=== PATIENT | male | born 1965 | race Caucasian/White ===

== ENCOUNTER 2016-02-15 12:33 | Observation (INO) | payer OTHER ==
[~2016-02-15] VITALS: Ht 175.3 cm; Wt 58.5 kg
[~2016-02-15 12:33] MED LIST: AMLO5TAB2 PO; ASPI-973 PO; ATOR80TA PO; BUPR150T8 PO; CLOP75TA3 PO; ERGO500050 PO; METO25TA6 PO; NITR12SP5 TL; OMEG1000 PO; PARO20TA57 PO
[2016-02-15 12:36] VITALS: BP 163/85; PULSE 94; RESP 20; O2SAT 98
[2016-02-15 13:05] VITALS: BP 147/78; PULSE 84; RESP 21; O2SAT 97
--- NOTE | 2016-02-15 13:05 | ED.REPORT ---
HPI-Chest Pain 40 and Over Date of Service Feb 15, 2016 ED Provider: Mina Perez Patient is a 50 year old male with a cardiac history who presents to the ED complaining of dull chest pain onset 1030 this morning. He reports that he came home from work and was laying in bed when he started getting dull chest pain that became sharp, radiated to his arm (unspecified), and then resolved. His pain repeats these cycles and his pain last for about 5 min each cycle. Associated symptoms include bilateral leg pain, headache, cough, fever, sore throat, and vomiting. He denies SOB, lightheadedness, or any other symptoms. He took one baby aspirin and one Nitro at home for his pain with mild relief. Nursing Notes Stated Complaint: CHEST PAIN Chief Complaint: Chest Pain Nursing Notes Reviewed: Yes Allergies: Coded Allergies: Penicillins (Verified Allergy, Severe, Anaphylaxis, 05/12/15) azithromycin (Verified Allergy, Severe, Hives, 05/12/15) Scheduled Aspirin (Aspirin) 81 Mg Tablet 81 MG PO DAILY General Time Seen by MD: 13:04 Chief Complaint Chest pain Hx Obtained From: Patient Arrived By: Walk-in Sudden in Onset?: Yes Risk Factors )( CAD Risk Stratification Diabetes mellitus Hyperlipidemia Hypertension Known CAD Smoking Risk factors reviewed )( TAD Risk Stratification Hypertension Risk factors reviewed )( PE Risk Stratification No Previous DVT Risk factors reviewed Past Medical History Patient History: Diabetes mellitus MOTHER FH: CAD (coronary artery disease) MOTHER FH: HTN (hypertension) MOTHER FHx: melanoma FATHER, Onset:60 years & older Past Medical History Notes: Patient is status post a normal stress echo 03/21/2014 Past Medical History Coronary artery disease status post stenting of LAD with a Xience drug-eluting stent 05/11/2012 Hypertension Hyperlipidemia Mild depression Treadmill stress test June 2014- Non-specific T-wave abnormalities Reports: Coronary artery disease, Diabetes mellitus, Hyperlipidemia, Hypertension Past Surgical History Torn meniscus 2006 Cardiac cath with stent placement LAD 05/11/2012 Reports: Appendectomy, Tonsillectomy Family History Grandfather - heart disease at age 60 Smoking History Current Every Day Smoker Social History Alcohol Use: Denies alcohol use Drug Use: Denies drug use Other Social History: Occupation lives with family, 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 Ears / Nose / Throat: Reports: Sore throat Physical Exam Initial Vital Signs Vital Signs (First) Date Time Temp Pulse Resp B/P Pulse Ox O2 Delivery O2 Flow Rate FiO2 02/15/16 12:36 37.8 94 20 163/85 98 Room Air Initial VS: Reviewed Head / Eyes: Atraumatic, Normocephalic Neck: Full range of motion Skin: Warm, Dry Neurologic: Alert, Oriented, Nonfocal Psychiatric: Mood/affect normal, Behavior normal, Normal thought content General/Constitutional: Awake, Alert, Well appearing, Well developed Respiratory / Chest: Atraumatic, Breath sounds NL, Breath sounds = bilat, No respiratory distress Cardiovascular: Heart rate NL, Regular rhythm, Heart sounds NL Abdomen: Atraumatic, Soft, Non-tender Interpretation & Diagnostics Lab Results Interpretation Result Diagram: 02/15/16 1315 02/15/16 1315 Test 02/15/16 13:15 White Blood Count 9.0th/mm3 (3.8-10.1) Red Blood Count 4.54mil/mm3 (4.40-5.80) Hemoglobin 14.1g/dL (13.8-17.2) Hematocrit 41.3% (41.0-50.0) Mean Corpuscular Volume 91.0fL (81-100) Mean Corpuscular Hemoglobin 31.1pg (27.0-35.0) Mean Corpuscular Hemoglobin Concent 34.1% (32.0-37.0) Red Cell Distribution Width 13.4% (12.3-15.4) Platelet Count 180bil/L (150-400) Neutrophils (%) (Auto) 84.9% (40-74) Lymphocytes (%) (Auto) 8.0% (14-46) Monocytes (%) (Auto) 4.5% (4-12) Eosinophils (%) (Auto) 2.0% (0-5) Basophils (%) (Auto) 0.4% (0-3) Sodium Level 140mEq/L (134-144) Potassium Level 4.2mEq/L (3.5-5.2) Chloride Level 99mEq/L (97-108) Carbon Dioxide Level 26mmol/L (18-29) Blood Urea Nitrogen 19mg/dL (6-24) Creatinine 0.89mg/dL (0.76-1.27) Estimat Glomerular Filtration Rate 95mL/min (>59) Glucose Level 113mg/dL (60-99) Calcium Level 9.3mg/dL (8.5-10.1) Magnesium Level 1.8mg/dL (1.6-2.6) Total Bilirubin 0.2mg/dL (0.0-1.2) Aspartate Amino Transf (AST/SGOT) 15U/L (0-50) Alanine Aminotransferase (ALT/SGPT) 13U/L (0-44) Alkaline Phosphatase 155U/L (25-150) Troponin T < 0.010ug/L (0.0-0.011) Total Protein 6.5g/dL (6.4-8.4) Albumin 4.1g/dL (3.4-5.0) Hold Major Top Tube Received (Received) ECG Interpretation ECG Interpretation: Sinus rate 85 Time: 13:23 Interpreted by: ED physician X-Ray Chest Interpretation Chest Xray Interpretation: IMPRESSION: No acute cardiopulmonary disease. Dictated by: Julio Cesar Don M.D. on 02/15/2016 at 13:13 Approved by: Julio Cesar Don M.D. on 02/15/2016 at 13:13 View: Portable, 1 view Interpretation / Wet Read by: Interpret - Radiologist Re-Eval/Medical Decision Time of Eval: 14:18 Re-Evaluation/Progress Note: Discussed desire for admission. Patient understands and agrees with plan. All questions addressed at this time. Consultation : Referral / Consult Name: Yash Palomino MD Consulted With: Hospitalist Call Returned at: 14:51 Area Development Manager: Accepts admit Counseled Regarding: Diagnosis, Lab results, Need for admission Discharge & Departure Primary Impression: Chest pain Chest pain type: precordial chest pain Qualified Code: R07.2 - Precordial pain Disposition: ADMITTED TO HOSPITAL Referrals: Rocio Villarreal MD (PCP) Scribe Attestation Portions of this note were transcribed by Karin Michaud. IDr. Perez personally performed the history, physical exam and medical decision-making; I reviewed and confirmed the accuracy of the information in the transcribed note. Signed by: Karin Michaud 02/15/2016, 1431 copies to: [facility] Mina Perez MD Feb 15, 2016 13:05 KARIN MICHAUD Feb 15, 2016 13:24
--- NOTE | 2016-02-15 13:15 | DRSVH ---
PROCEDURE: X-RAY CHEST ONE VIEW ([id number]) INDICATIONS: 50 year-old male with chest pain for one hour. TECHNIQUE: One view of the chest was acquired. COMPARISON: [facility], CR, XR CHEST 2VW, 07/08/2015, 14:45. [facility], CR, XR CHEST 1VW (PORTABLE), 05/12/2015, 0:16. [facility], CR, CHEST 1VW (PORTABLE), 07/01/19 15, 11:24. FINDINGS: Surgical changes and devices: None. Lungs and pleura: No pleural effusions or pneumothorax. Lungs are clear. Mediastinum: Mediastinal contours appear normal. Heart size is normal. Bones and chest wall: No suspicious bony lesions. Overlying soft tissues appear unremarkable. IMPRESSION: No acute cardiopulmonary disease. Dictated by: Julio Cesar Don M.D. on 02/15/2016 at 13:13 Approved by: Julio Cesar Don M.D. on 02/15/2016 at 13:13
[2016-02-15 13:30] LABS: BASOPHILS % (AUTO) 0.4 % (0-3); MONOCYTES % (AUTO) 4.5 % (4-12); Mean Corpuscular Hemoglobin 31.1 pg (27.0-35.0); NEUTROPHILS % (AUTO) 84.9 % (40-74); Platelet Count 180 bil/L (150-400)
[2016-02-15] MEDS ORDERED: levoFLOXacin Inj 750 MG in IV Premix 1 EACH IV ONE (14:05)
[2016-02-15 14:06] LABS: Magnesium 1.8 mg/dL (1.6-2.6)
[2016-02-15 14:09] LABS: TROPONIN T < 0.010 ug/L (0.0-0.011)
[2016-02-15] MEDS ORDERED: Ondansetron 2 mg/mL 2 mL Inj IVPUSH PRN (14:55)
[2016-02-15] MEDS ORDERED: Alum-Mag Hydrox-Simeth 30 mL Suspension PO PRN (14:55)
[2016-02-15 15:21] VITALS: BP 138/75; PULSE 93; RESP 20; O2SAT 100
[2016-02-15] MEDS ORDERED: Polyethylene Glycol (PEG) 17 Gm Powder PO PRN (15:30)
[2016-02-15 16:31] VITALS: BP 134/68; PULSE 87; O2SAT 96
[2016-02-15 17:04] VITALS: PULSE 84
--- NOTE | 2016-02-15 17:50 | NUR ---
ADMIT TO [facility] Patient arrived to Rm 100[facility] on [facility] and self transferred over to hospital bed independently. Alert and oriented. Saline lock IV to left forearm. On RA. VSS. Telemetry placed on patient. C/o dull chest pain 3/10, non radiating. Telemetry placed on patient. Rapid influenza screen sent down to lab. Completed admission, pending med rec. Oriented to room. Will continue hourly rounding.
--- NOTE | 2016-02-15 18:14 | NUR ---
MED REC Unable to complete med rec. Patient does not remember medications by heart, pharmacy is closed until 10am tomorrow morning. No one is at home right now to read medication labels over phone. Will pass onto material handler 2nd shift to possibly get a hold of patient's when she gets off work. Addendum: 02/15/16 at 1834 by RITCHIE KEMP RN MD mora. RINKU
--- NOTE | 2016-02-15 18:24 | PCM.HPMED ---
Subjective Date of Service Feb 15, 2016 Primary Provider: Admitting Physician: Yash Palomino MD Primary Care Physician: Rocio Villarreal MD Attending Physician: Yash Palomino MD Admit Status: From the Emergency Department, 23-Hour Observation, Admit to Red Team Chief Complaint: Chest pain/4h Cough and malaise/2 days History of Present Illness: 50-year-old gentleman with past medical history of CAD status post stent on LAD on 05/10/14, hypertension, hyper triglyceride, depression, low vitamin D, current smoker came to emergency room due to chest pain of 4 hours. Patient was lying in bed and at rest when he started to have left chest, dull aching pain. Pain is intermittent, lasts 5 minutes, radiates to left shoulder. No aggravating or relieving factor noted. No diaphoresis. He works at [employer] and lifts heavy stuff, never had any chest pain with exertion. Patient admits he is noncompliant with medications. He stopped taking Plavix recently by himself. He takes aspirin. He has been having dry cough and chest congestion for the past 2 days. Has malaise. Temp 37.8 in ED He has multiple family members who are also sick with similar cold symptoms. His , [id number], son-in-law sick with similar cold symptoms. Current smoker,3/4 pack a day. Last stress test 07/01/14 when he was admitted for chest pain and was unremarkable. ED course: Temp 37.8, BP 163/85, other vitals unremarkable EKG NSR no st/t wave changes, troponin negative 1. Chest x-ray normal Hospitalist service requested for admission for chest pain Review of Systems: A comprehensive review of systems performed, pertinent positives and negatives included in history of present illness Allergies Coded Allergies: Penicillins (Verified Allergy, Severe, Anaphylaxis, 05/12/15) azithromycin (Verified Allergy, Severe, Hives, 05/12/15) Home Medications patient not sure of list,[facility] closed ASa metoprolol statin PMH CAD status post stent on LAD on 05/10/14, hypertension, hyper triglyceride, depression, low vitamin D, current smoker Surgical History Cardiac stent 2014 Right knee surgery Tonsillectomy as a kid Family History His mom due to heart disease. She had CAD starting in her 50s His dad of melanoma at 65 Social History Hx Alcohol Use: Yes Hx Substance Use: Yes Hx Tobacco Use: Yes Smoking Status: Current Every Day Smoker Living Arrangement: with Family Exam Vital Signs Vital Sign - Last Date Time Temp Pulse Resp B/P Pulse Ox O2 Delivery O2 Flow Rate FiO2 02/15/16 17:04 84 02/15/16 16:31 37.2 134/68 96 Room Air 02/15/16 15:21 20 Exam Gen. patient is lying comfortably in hospital bed HEENT: Head is normocephalic atraumatic, Pupils equal and reactive, extraocular movements intact, Lungs clear to auscultation bilaterally Heart regular rate and rhythm without murmurs gallops or rubs Abdomen soft nontender without hepatosplenomegaly Extremities pulses are present dorsalis pedis posterior tibialis and radial. tSkin is warm and dry there are no rashes, Psych alert and oriented to person place and time Neuro cranial nerves II through XII are grossly intact Lymph: There is no lymphadenopathy appreciated in the cervical supra infraclavicular regions : no fisher Lab and Diagnostics Result Diagram: 02/15/16 1315 02/15/16 1315 X-Rays, CTs and MRIs PROCEDURE: X-RAY CHEST ONE VIEW ([id number]) INDICATIONS: 50 year-old male with chest pain for one hour. TECHNIQUE: One view of the chest was acquired. COMPARISON: [facility], CR, XR CHEST 2VW, 07/08/2015, 14:45. [facility], CR, XR CHEST 1VW (PORTABLE), 05/12/2015, 0:16. [facility], CR, CHEST 1VW (PORTABLE), 06/30/2014, 11:24. FINDINGS: Surgical changes and devices: None. Lungs and pleura: No pleural effusions or pneumothorax. Lungs are clear. Mediastinum: Mediastinal contours appear normal. Heart size is normal. Bones and chest wall: No suspicious bony lesions. Overlying soft tissues appear unremarkable. IMPRESSION: No acute cardiopulmonary disease. Dictated by: Julio Cesar Don M.D. on 02/15/2016 at 13:13 12-lead ECG Normal sinus rhythm Assessment & Plan 50-year-old gentleman with past medical history of CAD status post stent on LAD on 05/10/14, hypertension, hyper triglyceride, depression, low vitamin D, current smoker came to emergency room due to chest pain of 4 hours. #Chest pain, POA, acute - Likely due to chest congestion due to URI -Continue Aspirin, hold metoprolol pending stress test - nitro prn, EKG when necessary -Stress test tomorrow -trend troponin #URI symptoms -Likely viral -Supportive care -Influenza screen # CAD status post stent on LAD on 05/10/14, hypertension -Continue aspirin, statin -hold BB for stress test - BP stable now #Low vitamin D -Continue home meds #Current smoker ,chronic -Counseled patient. Patient seems very motivated to quit. 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 Discussed CODE STATUS, full code Patient admitted under observation status with expected length of stay < 2 midnights for severity of present symptoms, complexities of treatment plan and risk for adverse events Pain Evaluation: Adequate Pain Control Resuscitation Status: CPR: Attempt Resuscitation copies to: Rocio Villarreal MD, Melaku MD Feb 15, 2016 18:24
[2016-02-15 20:10] VITALS: BP 125/71; PULSE 88; RESP 16; O2SAT 94
--- NOTE | 2016-02-15 23:10 | NUR ---
Care transferred to [facility] at 2300.
[2016-02-16] VITALS (8 sets, daily range): BP systolic 96–138; BP diastolic 61–71; PULSE 75–96; RESP 16; O2SAT 93–96
--- NOTE | 2016-02-16 03:02 | NUR ---
Headache/temp Pt reporting headache 5/10 and also had a temp of 38.3. Pt given 975 mg of PO Tylenol. On reassessment, headache gone and temp down to 37.3. Also Rapid flu swab sent to lab. Pt has been NPO since midnight.
[2016-02-16 03:20] LABS: BASOPHILS % (AUTO) 0.5 % (0-3); EOSINOPHILS % (AUTO) 1.4 % (0-5); MONOCYTES % (AUTO) 7.4 % (4-12); Mean Corpuscular Hemoglobin 30.9 pg (27.0-35.0); Mean Corpuscular Volume 91.3 fL (81-100); NEUTROPHILS % (AUTO) 84.1 % (40-74); Platelet Count 153 bil/L (150-400)
[2016-02-16 04:16] LABS: Magnesium 1.8 mg/dL (1.6-2.6); TROPONIN T 0.01 ug/L (0.0-0.011)
--- NOTE | 2016-02-16 14:06 | NUR ---
Cardiac- Patient NPO this am for MIBI. Completed first portion. Denies chest pain or shortness of breath. Tele-sinus rhythm.
--- NOTE | 2016-02-16 15:46 | NUR ---
Social Work Note: Screen Note Data& Assessment: EMR reviewed. SW met with pt and pt family at bedside to discuss discharge planning, SW role explained. Shantanu Gallardo is a 50 year old male under observation for chest pain. Pt has [employer] out of state insurance coverage and sees Rocio Villarreal MD for primary care. Pt lives in [place] with his family and is independent at baseline with ADL's. Pt daughter to transport him home when medically ready. Pt expressed concerns regarding medical bills, SW provided him with financial assistance application. Pt denies any other needs at this time. SW to continue to follow if any needs arise. Plan: Anticipated discharge home via POV when medically ready. Pt denies any other needs at this time. SW to continue to follow if any needs arise. KASIA Aguirre
--- NOTE | 2016-02-16 17:08 | PCM.DIMED ---
Discharge Instructions Date of Service Feb 16, 2016 Dates of Hospitalization Feb 15, 2016 at 15:01 Discharge Diagnosis Discharge Diagnosis #Chest pain, POA, acute,ACS ruled out - Likely due to chest congestion due to URI #URI symptoms,acute -Likely viral # CAD status post stent on LAD on 05/10/14, hypertension #Low vitamin D #Current smoker ,chronic Test Results stress test IMPRESSION: Positive for ischemia in the lateral wall 1) Abnormal perfusion study. Moderate amount of ischemia noted in the lateral wall. Summed stress score is 8 and summed difference score is 6. 2) Normal left ventricular size, wall motion, and function (EF 60%). 3) Non-diagnostic ECG changes with exercise or lexiscan. 4) No angina or angina equivalent symptoms with exercise. 5) Poor exercise tolerance (7 METs achieved, PATRICE +40%). Study converted to lexiscan as target heart rate not reached and patient felt lightheadedness with exercise. 6) Appropriate heart rate and blood pressure response to exercise. 7) Compared to the stress test done 07/2013, lateral wall ischemia is new on today's study. Diet Low fat, Low Sodium, Heart Healthy Activity Limited until seen by PCP Call your provider Fever or Chills, Shortness of breath, Bleeding, Chest pain, Vomitting, Excessive diarrhea, Weakness (unilateral) Patient Instructions You were hospitalized due to chest pain. Stress test shows lateral ischemia ( suspected heart artery artery). Please continue your home medications including Aspirin 325 mg daily, metoprolol 25 mg by mouth daily and atorvastatin 40 mg by mouth daily. Counseled on smoking cessation. Please follow-up with taxonomy teacher in 1-2 weeks. Please follow-up with his PCP in 1 week. Follow-up plan Please follow-up with PCP in 1 week Follow-up Provider: Rocio Villarreal MD Follow-up with PCP in: 1 week Provider: Bradley Valenzuela MD Follow-up in: 1 week Yash Palomino MD Feb 16, 2016 17:08
--- NOTE | 2016-02-16 17:10 | PCM.DC.MED ---
Discharge Summary Date of Service Feb 16, 2016 Dates of Hospitalization Date of Hospital Admission Feb 15, 2016 at 15:01 Date of Discharge: Feb 17, 2016 Providers: Admitting Physician: Yash Lucero MD Primary Care Physician: Rocio Villarreal MD Attending Physician: Yash Lucero MD Diagnosis at Time of Discharge Diagnosis at Time of Discharge #Chest pain, POA, acute -due to CAD ,new lateral wall ischemia on stress test #URI symptoms,acute -Likely viral # CAD status post stent on LAD on 05/10/14, hypertension #Low vitamin D #Current smoker ,chronic Consultations no alliances consultant was involved on this case Procedures XRay, CTs & MRIs PROCEDURE: X-RAY CHEST ONE VIEW ([id number]) INDICATIONS: 50 year-old male with chest pain for one hour. TECHNIQUE: One view of the chest was acquired. COMPARISON: [facility], CR, XR CHEST 2VW, 07/08/2015, 14:45. [facility], CR, XR CHEST 1VW (PORTABLE), 05/12/2015, 0:16. [facility], CR, CHEST 1VW (PORTABLE), 06/30/2014, 11:24. FINDINGS: Surgical changes and devices: None. Lungs and pleura: No pleural effusions or pneumothorax. Lungs are clear. Mediastinum: Mediastinal contours appear normal. Heart size is normal. Bones and chest wall: No suspicious bony lesions. Overlying soft tissues appear unremarkable. IMPRESSION: No acute cardiopulmonary disease. Dictated by: Julio Cesar Don M.D. on 02/15/2016 at 13:13 ECG 12 Lead Normal sinus rhythm Brief History as per HPI performed by mn on 02/15/16 50-year-old gentleman with past medical history of CAD status post stent on LAD on 05/10/14, hypertension, hyper triglyceride, depression, low vitamin D, current smoker came to emergency room due to chest pain of 4 hours. Patient was lying in bed and at rest when he started to have left chest, dull aching pain. Pain is intermittent, lasts 5 minutes, radiates to left shoulder. No aggravating or relieving factor noted. No diaphoresis. He works at [employer] and lifts heavy stuff, never had any chest pain with exertion. Patient admits he is noncompliant with medications. He stopped taking Plavix recently by himself. He takes aspirin. He has been having dry cough and chest congestion for the past 2 days. Has malaise. Temp 37.8 in ED He has multiple family members who are also sick with similar cold symptoms. His , [id number], son-in-law sick with similar cold symptoms. Current smoker,3/4 pack a day. Last stress test 07/01/14 when he was admitted for chest pain and was unremarkable. ED course: Temp 37.8, BP 163/85, other vitals unremarkable EKG NSR no st/t wave changes, troponin negative 1. Chest x-ray normal Hospitalist service requested for admission for chest pain Hospital Course 50-year-old gentleman with past medical history of CAD status post stent on LAD on 05/10/14, hypertension, hyper triglyceride, depression, low vitamin D, current smoker came to emergency room due to chest pain of 4 hours. #Chest pain, POA, acute - Likely due to chest congestion due to URI -Continue Aspirin, hold metoprolol pending stress test - nitro prn, EKG when necessary -Stress test tomorrow -troponin 3 -Discussed with Dr Ramos , he needs to follow with his substance abuse clinician in 1-2 weeks #URI symptoms -High grade fever with URI symptoms. Likely viral, pro calcitonin negative 2 -Supportive care -Influenza screen negative -Blood culture sent but pro calcitonin negative 2. Discharge patient. I Will follow up with culture results tomorrow # CAD status post stent on LAD on 05/10/14, hypertension -Continue aspirin, statin and metoprolol -Counseled on smoking cessation. - BP stable now #Low vitamin D -Continue home meds #Current smoker ,chronic -Counseled patient. Patient seems very motivated to quit. 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 Discussed CODE STATUS, full code Disposition discharge home Condition on discharge stable Exam Vital Signs (Last) Date Time Temp Pulse Resp B/P Pulse Ox O2 Delivery O2 Flow Rate FiO2 02/16/16 12:00 37.8 88 16 138/68 96 Room Air Exam Gen. patient is lying comfortably in hospital bed HEENT: Head is normocephalic atraumatic, Pupils equal and reactive, extraocular movements intact, Lungs clear to auscultation bilaterally Heart regular rate and rhythm without murmurs gallops or rubs Abdomen soft nontender without hepatosplenomegaly Extremities pulses are present dorsalis pedis posterior tibialis and radial. tSkin is warm and dry there are no rashes, Psych alert and oriented to person place and time Neuro cranial nerves II through XII are grossly intact Lymph: There is no lymphadenopathy appreciated in the cervical supra infraclavicular regions : no fisher Test 02/15/16 13:15 02/15/16 18:05 02/16/16 02:55 02/16/16 11:50 Hold Major Top Tube Received (Received) Procalcitonin < 0.05ng/mL (See Comment) White Blood Count 7.3th/mm3 (3.8-10.1) Red Blood Count 4.46mil/mm3 (4.40-5.80) Hemoglobin 13.8g/dL (13.8-17.2) Hematocrit 40.7% (41.0-50.0) Mean Corpuscular Volume 91.3fL (81-100) Mean Corpuscular Hemoglobin 30.9pg (27.0-35.0) Mean Corpuscular Hemoglobin Concent 33.9% (32.0-37.0) Red Cell Distribution Width 13.8% (12.3-15.4) Platelet Count 153bil/L (150-400) Neutrophils (%) (Auto) 84.1% (40-74) Lymphocytes (%) (Auto) 6.3% (14-46) Monocytes (%) (Auto) 7.4% (4-12) Eosinophils (%) (Auto) 1.4% (0-5) Basophils (%) (Auto) 0.5% (0-3) Sodium Level 137mEq/L (134-144) Potassium Level 3.9mEq/L (3.5-5.2) Chloride Level 99mEq/L (97-108) Carbon Dioxide Level 23mmol/L (18-29) Blood Urea Nitrogen 18mg/dL (6-24) Creatinine 0.76mg/dL (0.76-1.27) Estimat Glomerular Filtration Rate 114mL/min (>59) Glucose Level 106mg/dL (60-99) Calcium Level 9.1mg/dL (8.5-10.1) Magnesium Level 1.8mg/dL (1.6-2.6) Total Bilirubin 0.3mg/dL (0.0-1.2) Aspartate Amino Transf (AST/SGOT) 14U/L (0-50) Alanine Aminotransferase (ALT/SGPT) 13U/L (0-44) Alkaline Phosphatase 135U/L (25-150) Troponin T 0.010ug/L (0.0-0.011) Total Protein 6.6g/dL (6.4-8.4) Albumin 3.8g/dL (3.4-5.0) Hold Urine Received (Received) Discharge Medications Discharge Medications Aspirin (Aspirin) 325 Mg Tablet 325 MG PO DAILY Prescribed by: YASH LUCERO MD Atorvastatin Calcium (Atorvastatin Calcium) 40 Mg Tablet 40 MG PO HS Prescribed by: YASH LUCERO MD Metoprolol Succinate ER (Metoprolol Succinate ER) 50 Mg Tab.er.24h 50 MG PO DAILY Prescribed by: YASH LUCERO MD As needed ([Guaifenesin/D-Methorphan Hb]) 10 ML SYRUP 5-10 ML PO Q4H PRN PRN For Cough Prescribed by: YASH LUCERO MD Followup Plan Disposition: home Follow-up plan Please follow-up with PCP in 1 week Discharge Diet: Low fat, Low Sodium, Heart Healthy Discharge Activity: Limited until seen by PCP Patient Instructions You were hospitalized due to chest pain. heart attack ruled out. looks like pain is due to your viral URI. Please continue your home medications as usual including Aspirin and metoprolol. Follow-up Provider: Rocio Villarreal MD Follow-up with PCP in: 1 week Provider: Bradley Valenzuela MD Follow-up in: 1 week copies to: Bradley Valenzuela MD; Rocio Villarreal MD, Melaku MD Feb 16, 2016 17:10
--- NOTE | 2016-02-16 17:15 | PCM.PNMED ---
Subjective Date of Service Feb 16, 2016 Subjective Had stress test, we get resting phase tomorrow Exam Vital Signs Vital Sign - Last Date Time Temp Pulse Resp B/P Pulse Ox O2 Delivery O2 Flow Rate FiO2 02/16/16 12:00 37.8 88 16 138/68 96 Room Air Intake and Output 02/15/16 02/15/16 02/16/16 Cumulative From/Thru 15:00 23:00 07:00 02/15/16 12:36 - 02/16/16 06:19 Intake Total 300 ml 300 ml 600 ml Output Total 0 ml 500 ml 500 ml Balance 300 ml -200 ml 100 ml Intake Oral 300 ml 300 ml 600 ml Output Urine Total 0 ml 500 ml 500 ml # Bowel Movements 0 0 Exam Gen. patient is lying comfortably in hospital bed HEENT: Head is normocephalic atraumatic, Pupils equal and reactive, extraocular movements intact, Lungs clear to auscultation bilaterally Heart regular rate and rhythm without murmurs gallops or rubs Abdomen soft nontender without hepatosplenomegaly Extremities pulses are present dorsalis pedis posterior tibialis and radial. tSkin is warm and dry there are no rashes, Psych alert and oriented to person place and time Neuro cranial nerves II through XII are grossly intact Lymph: There is no lymphadenopathy appreciated in the cervical supra infraclavicular regions : no fisher IVs and Medications Medications Reviewed: Medications were reviewed in detail Lab and Diagnostics Result Diagram: 02/16/165 02/16/16 025 X-Rays, CTs and MRIs PROCEDURE: X-RAY CHEST ONE VIEW ([id number]) INDICATIONS: 50 year-old male with chest pain for one hour. TECHNIQUE: One view of the chest was acquired. COMPARISON: [facility], CR, XR CHEST 2VW, 07/08/2015, 14:45. [facility], CR, XR CHEST 1VW (PORTABLE), 05/12/2015, 0:16. [facility], CR, CHEST 1VW (PORTABLE), 06/30/2014, 11:24. FINDINGS: Surgical changes and devices: None. Lungs and pleura: No pleural effusions or pneumothorax. Lungs are clear. Mediastinum: Mediastinal contours appear normal. Heart size is normal. Bones and chest wall: No suspicious bony lesions. Overlying soft tissues appear unremarkable. IMPRESSION: No acute cardiopulmonary disease. Dictated by: Julio Cesar Don M.D. on 02/15/2016 at 13:13 12-lead ECG Normal sinus rhythm Assessment & Plan 50-year-old gentleman with past medical history of CAD status post stent on LAD on 05/10/14, hypertension, hyper triglyceride, depression, low vitamin D, current smoker came to emergency room due to chest pain of 4 hours. #Chest pain, POA, acute - Likely due to chest congestion due to URI -Continue Aspirin, hold metoprolol pending stress test - nitro prn, EKG when necessary -Stress test show some defect. will do resting phase tomorrow - troponin negative x3 #URI symptoms -Likely viral -Supportive care -Influenza screen # CAD status post stent on LAD on 05/10/14, hypertension -Continue aspirin, statin -hold BB for stress test - BP stable now #Low vitamin D -Continue home meds #Current smoker ,chronic -Counseled patient. Patient seems very motivated to quit. 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 Discussed CODE STATUS, full code disposition:dc tmrw after stress test is completed Resuscitation Status: CPR: Attempt Resuscitation Yash Palomino MD Feb 16, 2016 17:15
--- NOTE | 2016-02-16 20:06 | NUR ---
2000: Assumed pt care
[2016-02-17 02:07] VITALS: BP 128/74; PULSE 82; RESP 16; O2SAT 95
[2016-02-17] MEDS ORDERED: guaiFENesin DM 200-20 mg/10 mL Syrup PO PRN (02:15)
--- NOTE | 2016-02-17 04:26 | NUR ---
Pt reports sore throat and cough. Received orders for Robitussin DM. 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
[2016-02-17 04:43] VITALS: BP 137/72; PULSE 99; RESP 16; O2SAT 94
[2016-02-17 08:00] VITALS: PULSE 90
[2016-02-17 08:23] LABS: BASOPHILS % (AUTO) 0.3 % (0-3); EOSINOPHILS % (AUTO) 0.1 % (0-5); Mean Corpuscular Hemoglobin 30.8 pg (27.0-35.0); Mean Corpuscular Volume 90.3 fL (81-100); NEUTROPHILS % (AUTO) 88.1 % (40-74); Platelet Count 122 bil/L (150-400)
[2016-02-17 08:42] VITALS: BP 100/68; PULSE 88; RESP 16; O2SAT 95
[2016-02-17] MEDS ORDERED: Potassium Chloride 20 mEq SR Tablet PO ONE (09:00)
[2016-02-17 09:39] LABS: ERYTHROCYTE SEDIMENTATION RATE 17 mm/hr (0-30)
[2016-02-17 10:05] LABS: APPEARANCE,URINE CLOUDY (CLEAR,HAZY); COLOR,URINE YELLOW (YELLOW)
[2016-02-17 10:06] LABS: OCCULT BLOOD,URINE TRACE (NEGATIVE); UROBILINOGEN,URINE NORMAL (NORMAL)
--- NOTE | 2016-02-17 10:23 | DRSVH ---
PROCEDURE: X-RAY CHEST ONE VIEW, PORTABLE ([id number]) INDICATIONS: 50-year-old male with fevers. TECHNIQUE: One view of the chest was acquired. COMPARISON: [facility], CR, XR CHEST 1VW, 02/15/2016, 12:46. [facility], CR , XR CHEST 2VW, 07/08/2015, 14:45. [facility], CR, XR CHEST 1VW (PORTABLE), 05/12/2015, 0: 16. FINDINGS: Surgical changes and devices: None. Lungs and pleura: No pleural effusions or pneumothorax. Lungs are clear. Mediastinum: Mediastinal contours appear normal. Heart size is normal. Bones and chest wall: No suspicious bony lesions. Overlying soft tissues appear unremarkable. IMPRESSION: No acute cardiopulmonary disease. Dictated by: Julio Cesar Don M.D. on 02/17/2016 at 10:21 Approved by: Julio Cesar Don M.D. on 02/17/2016 at 10:21
[2016-02-17 11:59] VITALS: BP 127/79; PULSE 79; RESP 16; O2SAT 98
--- NOTE | 2016-02-17 14:20 | DRSVH ---
PROCEDURE: 2 DAY STRESS TEST Rest and pharmacological stress myocardial perfusion SPECT with gated imaging and ejection fraction RADIOPHARMACEUTICAL: 24.7 mCi Tc-99m tetrafosmin IV at rest and 21.7 mCi Tc-99m tetrafosmin IV at pe ak effect of pharmacological stress. [id number]-pib-[id number] was performed. INDICATIONS: chest pain TECHNIQUE: Radiopharmaceutical was injected at peak stress test, and also at rest. SPECT images wer e obtained. SPECT myocardial perfusion images were displayed in short axis, horizontal long axis, an d vertical long axis views. Gated images were reviewed using WeimiQUANT software. COMPARISON: [place], [place], MYOCARD PERF SPECT SINGLE, 07/22/2013, 10:55. CARDIAC STRESS: Patient did treadmill stress initially but stopped at 5 minutes and 59 second dipika due to lightheaded ness and patient request. Maximum heart rate of 116bpm reached (69% of max predicted). 7 METs exerc ise capacity with PATRICE +40%. A pharmacologic stress test was performed under the supervision of an attending staff, using an infus ion of lexiscan 0.4mg IV X1. Hemodynamic data: There is normal blood pressure and heart rate response to pharmacologic stress. Symptoms: The patient denied anginal chest pain. Aminophylline: 100 EKG: Non-diagnostic ST changes noted in the anterolateral leads; no ectopy. FINDINGS: Raw data: There is good myocardial uptake of radiotracer. No significant motion artifacts. Left ventricle function: Gated images demonstrate normal left ventricular wall thickening. No segme ntal wall motion abnormalities. No transient ischemic dilation. Left ventricle resting end diastoli c volume is 61 mL. Left ventricle stress ejection fraction is 60%; normal range is above 45%. Myocardial perfusion: Moderate sized moderately severe reversible perfusion defect noted in the late ral wall with summed stress score of 8 and summed difference score of 6. This defect is consistent w ith ischemia in the lateral wall. IMPRESSION: Positive for ischemia in the lateral wall 1) Abnormal perfusion study. Moderate amount of ischemia noted in the lateral wall. Summed stress s core is 8 and summed difference score is 6. 2) Normal left ventricular size, wall motion, and function (EF 60%). 3) Non-diagnostic ECG changes with exercise or lexiscan. 4) No angina or angina equivalent symptoms with exercise. 5) Poor exercise tolerance (7 METs achieved, PATRICE +40%). Study converted to lexiscan as target heart rate not reached and patient felt lightheadedness with exercise. 6) Appropriate heart rate and blood pressure response to exercise. 7) Compared to the stress test done 07/2013, lateral wall ischemia is new on today's study. Dictated by: Miki Ramos M.D. on 02/17/2016 at 14:19 Approved by: Miki Ramos M.D. on 02/17/2016 at 14:19
[2016-02-17 15:00] VITALS: BP 140/70; PULSE 88
[2016-02-17] MEDS ORDERED: Guaifenesin/D-Methorphan Hb PO (15:05)
[2016-02-17] MEDS ORDERED: METO-272 PO (15:05)
[2016-02-17] MEDS ORDERED: ATOR40TA69 PO (15:05)
[2016-02-17] MEDS ORDERED: ASPI325T32 PO (15:05)
--- NOTE | 2016-02-17 15:33 | NUR ---
DISCHARGE Patient denies chest pain. Tolerating liquids PO and his diet well. Denies nausea. No emesis noted. Denies SOB. Patient has been ambulating independently in the room. Tolerating activity well. Voiding without any problems. IV saline lock d/cd. Discharge instructions, care notes and prescription was given to the patient and her verbalized understanding. Patient will discharge when his daughter comes to pick him up. (Copy of D/C is in the chart). Addendum: 02/17/16 at 1539 by NATALYA CLINTON RN TEMPERATURE Patient had a T of 38.9 this morning. Tylenol PO was given by Christine Brown RN. Dr. Palomino is aware of this. CXR/Labs where done this morning. He has been afebrile since. is aware of patients vitals. Addendum: 02/17/16 at 1631 by NATALYA CLINTON RN DISCHARGE Discharged to home with his family member and all his personal belongings.
== END 2016-02-17 16:03 | disposition home or self-care (01) ==
LOC: SED 12:33 → OSC 15:01
PROVIDERS: ADMIT Internal Medicine; ATTEND Internal Medicine
DX: R07.9 Chest pain, unspecified (principal); I25.10 Atherosclerotic heart disease of native coronary artery without angina pectoris; J06.9 Acute upper respiratory infection, unspecified; I10 Essential (primary) hypertension; E55.9 Vitamin D deficiency, unspecified; Z95.818 Presence of other cardiac implants and grafts; F17.210 Nicotine dependence, cigarettes, uncomplicated; Z91.14 Patient's other noncompliance with medication regimen
CPT/HCPCS: 36415; 71010; 78452; 80053; 81000; 82308; 83735; 84484; 85025; 85651; 87040; 87804; 93005; 93017; 99285; A9502; G0378; J0280; J2785

== ENCOUNTER 2016-03-13 05:39 | Day surgery (SDC) | payer OTHER ==
[2016-03-13] VITALS (19 sets, daily range): BP systolic 112–143; BP diastolic 63–92; PULSE 57–72; RESP 12–17; O2SAT 93–98
[~2016-03-13] VITALS: Ht 172.7 cm; Wt 58.5 kg
[~2016-03-13 05:39] MED LIST changes: -AMLO5TAB2 PO; -ASPI-973 PO; +ASPI325T32 PO; +ATOR40TA69 PO; -ATOR80TA PO; -BUPR150T8 PO; -CLOP75TA3 PO; -ERGO500050 PO; +METO-272 PO; -METO25TA6 PO; -NITR12SP5 TL; -OMEG1000 PO; -PARO20TA57 PO
[2016-03-13] MEDS ORDERED: 0.9% Sodium Chloride 1,000 ML IV ONE (06:22)
[2016-03-13] MEDS ORDERED: ASPI325T32 PO (07:32)
[2016-03-13] MEDS ORDERED: ASPI-973 PO (07:33)
[2016-03-13] MEDS ORDERED: Heparin 1,000 Units/500 mL NS Premix IV ONE (07:51)
[2016-03-13] MEDS ORDERED: Heparin 5,000 Units/500 mL NS Premix IV ONE (07:51)
[2016-03-13] MEDS ORDERED: fentaNYL-PF 50 mCg/mL 2 mL Inj ONE (07:52)
[2016-03-13] MEDS ORDERED: Atropine 1 mg/10 mL (Code) Syringe ONE (08:28)
[2016-03-13] MEDS ORDERED: Heparin 1,000 Unit/mL 10 mL Inj ONE (08:43)
[2016-03-13] MEDS ORDERED: Nitroglycerin 50,000 mcg/250 mL D5W Premix IV ONE (08:57)
--- NOTE | 2016-03-13 10:40 | DI95 ---
[address] [address] INTERVENTIONAL CARDIAC CATHETERIZATION PATIENT: ANN-MARIE THOMAS : 1965 MR#: [id number] ADMIT: 03/13/2016 JOB ID: [id number] DATE: 03/13/2016 PATIENT PROFILE: The patient is a 50-year-old male with angina pectoris and abnormal stress sestamibi. PROCEDURE: Unsuccessful attempt angioplasty to the subtotal occlusion of the third obtuse marginal. VASCULAR CLOSURE DEVICE: Perclose. COMPLICATION: None. METHOD: Following diagnostic coronary angiogram performed by Dr. Valenzuela, heparin 5,000 units and ticagrelor 180 mg were given. A 6-Indonesian CLS 3.5 guide was advanced to the left coronary ostium. An attempt to cross the subtotal occlusion of the third obtuse marginal branch with a run-through wire and a Whisper wire was unsuccessful. A 2.0 x 12 mm balloon was used to dilate in the proximal lesion. It was inflated up to 8 atmospheres for 5 seconds. Another attempt to direct the angioplasty wire across the lesion was unsuccessful. The procedure was terminated. Following sheath removal, hemostasis was achieved by using a Perclose device. The patient tolerated the procedure well. He was transferred to [facility] in good condition. TOTAL CONTRAST USED: 146 cc. FLUOROSCOPY TIME: 10.5 minutes. RESULTS: Unsuccessful attempt angioplasty to the subtotal occlusion of the third obtuse marginal branch. [facility] HOSPITALElana
--- NOTE | 2016-03-13 12:03 | NUR ---
Dr Eric notified of release of skin from perclose closure device.Entry site appeared puckered and entry site pulled open, with oozing. On applying manual pressure, Rio from director of laboratory operations felt a "pop" underneath skin. There is no hematoma, the thought is that on deployment the perclose probably caught on the tissue in the track of the puncture site and the pop is the tissue now released as there is no puckering of the entry site.Rio applied manual pressure over arterial site x 10 minutes. there is no hematoma or oozing, entry site is closed with bruising at entry site. Dr eric would like to keep patient on bedrest x 3 more hours.
[2016-03-13] MEDS ORDERED: LIP40 PO (14:44)
[2016-03-13] MEDS ORDERED: METO-272 PO (14:44)
--- NOTE | 2016-03-13 15:33 | NUR ---
Pt off bedrest at of 1450. he has ambulated to bathroom without difficulty and voided, right groin remains intact, no drainage on gauze. Will send him home with gauze and opsite covering right arterial puncture site.After hi shower tomorrow I have instructed him to remove and given him bandaids to cover site after patting area dry.No c/o chest pain or shortness of breath.Pt waiting for transport.
--- NOTE | 2016-03-13 17:07 | PCM.CVCATH ---
Cardiac Cath Report Date of Service Mar 13, 2016 Primary Indication This is a 50-year-old male with history of prior LAD stent. The patient comes in after having an inpatient myocardial perfusion study showing lateral wall ischemia. The patient has been asymptomatic. He is here for father evaluation of his coronaries to decide if percutaneous intervention is needed. Procedure 1. Left heart catheterization 2. Left reticular angiogram 3. Selective coronary angiogram 4. Right femoral angiogram Vascular Access Right common femoral artery Procedure Details The patient was brought into the catheterization laboratory. The patient was nothing by mouth since midnight. The patient was prepped and sterilized in the appropriate fashion. Local anesthetic was given to the right groin region with lidocaine 1%. A percutaneous stick to the right groin region with an 18-gauge Seldinger needle was attempted. A 6 Burkinan sheath was inserted into the right femoral artery. A 6 Burkinan FL 4 diagnostic catheter was advanced and engaged into the left main. The left coronary angiography was performed in multiple views. The catheter was exchanged over the wire for a 6 Burkinan FR4 diagnostic catheter. The catheter was engaged in the right coronary ostium and the right coronary angiography was performed in multiple views. The catheter was removed over the wire and exchanged for 6 Burkinan angle pigtail catheter. LV hemodynamics were recorded. Left ventricular angiography was performed at 12 mL /s for total 36 mL of contrast. LV pullback was performed. All catheters were removed. The right femoral angiogram was performed to evaluate for closure device. Case was handed over to Dr. Eric for elective percutaneous intervention of the left circumflex artery. Unfortunately this was unsuccessful. See details of his percutaneous coronary intervention report. Hemostasis was obtained with Perclose. The patient was transferred back to special observation unit for post procedural monitoring. There were no immediate complications. Total fluoroscopy time: 10.5 minutes Total fluoroscopy dosage: 1024 mGy Estimated blood loss: 20 mL Total contrast: 146 mL Medications/Fluoro Time See procedure log Findings 1. Hemodynamics: The left ventricular systolic pressure was estimated at 130 mmHg and the left ventricular end-diastolic pressure was estimated at 12 mmHg. There is no significant gradient during pullback. The aortic system are pressure was 134/ 65 mmHg and mean arterial pressure was 92 mmHg. 2. Selective coronary angiography: A. Left main: There artery has no evidence of significant disease. It bifurcates into the left anterior and left circumflex arteries. B. Left anterior descending artery: The proximal LAD stent is patent. There is a 50% stenosis just distal to the stent. Beyond the stenosis there is no evidence of significant disease. C. Left circumflex artery: This is a nondominant artery. The proximal portion there is no evidence of significant disease. There is a large third obtuse marginal artery with multiple branches as seen on previous coronary angiogram and there is 99% stenosis with very slow filling and evidence of competitive flow. Left circumflex otherwise wraps around the atrioventricular groove and terminates as a small vessel. D. Right coronary artery: This is a dominant artery. There was deep seeding with significant dampening. There is some degree of stenosis at the beginning of the ostium running into the proximal portion. This is probably estimated around 50-60%. Otherwise there is evidence of moderate disease throughout the RCA but no evidence of critical stenosis. There is evidence of right to left collaterals feeding into the distal portion of the third obtuse marginal artery. 3. Left ventricular angiogram: The ejection fraction is around 58%. There is no appreciable LV wall motion abnormalities. 4. Right femoral angiogram: There is no evidence of significant disease. Summary 1. Critical stenosis involving a distal third obtuse marginal branch artery. With comparing to the prior coronary angiogram the size of this vessel is quite large. 2. At least moderate stenosis distal to the proximal LAD stent. Consider FFR to further evaluate if percutaneous intervention is required. 3. At least moderate disease at the ostial/proximal RCA. 4. Normal LV wall motion and LV ejection fraction. 5. Normal left ventricular end-diastolic pressures. Recommendations Unfortunately percutaneous intervention with antegrade approach was not successful. Please see the details of the separate PCI report. Patient has moderate ischemia involving the lateral wall based on his prior myocardial perfusion study. Patient has not had any significant chest discomfort since his recent hospitalization. We can refer him as an outpatient to Dr. Wilkins to consider percutaneous intervention and as well as further evaluation of his other coronary stenosis. Patient will continue with his current medical therapy and our office will try to arrange his consultation at the [facility]. It was also reiterated that patient should stop smoking as well. He quit smoking right after hospitalization but he has recently restarted. copies to: Familia Wilkins MD; Rocio Villarreal MD, Oscar J MD Mar 13, 2016 17:07
== END 2016-03-13 23:59 | disposition home or self-care (01) ==
LOC: SOUO 05:39
PROVIDERS: ATTEND Internal Medicine Cardiovascular Disease
DX: I25.119 Atherosclerotic heart disease of native coronary artery with unspecified angina pectoris (principal); I10 Essential (primary) hypertension; Z95.5 Presence of coronary angioplasty implant and graft; I25.2 Old myocardial infarction; E78.5 Hyperlipidemia, unspecified; E78.1 Pure hyperglyceridemia; F17.200 Nicotine dependence, unspecified, uncomplicated; Z79.82 Long term (current) use of aspirin
CPT/HCPCS: 92920; 93458; 99152; 99153; C1725; C1760; C1769; C1887; J1200; J1644; J2060; J2250; J3010; J7030; Q9967

== ENCOUNTER 2016-04-08 23:33 | Emergency (ER) | payer OTHER ==
[~2016-04-08] VITALS: Ht 170.2 cm; Wt 61.4 kg
[~2016-04-08 23:33] MED LIST changes: +ASPI-973 PO; -ASPI325T32 PO; -ATOR40TA69 PO; +LIP40 PO
[2016-04-08 23:36] VITALS: BP 153/89; PULSE 61; O2SAT 100
[2016-04-09 00:14] LABS: BASOPHILS % (AUTO) 0.9 % (0-3); EOSINOPHILS % (AUTO) 3.7 % (0-5); MONOCYTES % (AUTO) 5.9 % (4-12); Mean Corpuscular Hemoglobin 30.8 pg (27.0-35.0); Mean Corpuscular Volume 89.9 fL (81-100); NEUTROPHILS % (AUTO) 56.3 % (40-74); Platelet Count 276 bil/L (150-400)
--- NOTE | 2016-04-09 00:32 | ED.REPORT ---
HPI-Abd Pain M 40 and Over Date of Service Apr 09, 2016 ED Provider: MD Eveline This is a 50 year old male with a history of CAD, HTN, hyperlipidemia, and DM presenting to the emergency department complaining of intermittent RLQ abdominal pain that began on day ago. The pain is now persistent and localized at RLQ. Denies radiation of the pain. Denies nausea, vomiting, fever, chills, diarrhea, constipation, dysuria, back pain, cough, or SOB. Pt scheduled for upcoming cardiac catheterization on 05/04/16. Nursing Notes Stated Complaint: ABDOMINAL PAIN Chief Complaint: Male Abdominal Pain Nursing Notes Reviewed: Yes Allergies: Coded Allergies: Penicillins (Verified Allergy, Severe, Anaphylaxis, 05/12/15) azithromycin (Verified Allergy, Severe, Hives, 05/12/15) Scheduled Aspirin (Aspirin) 81 Mg Tablet 81 MG PO DAILY Atorvastatin (Lipitor) 40 Mg Tablet 40 MG PO HS Metoprolol Succinate ER (Metoprolol Succinate ER) 50 Mg Tab.er.24h 50 MG PO DAILY General Time Seen by MD: 00:31 Chief Complaint Abdominal pain, Other Hx Obtained From: Patient Arrived By: Walk-in Sudden in Onset?: Yes Onset Occurred: Yesterday Symptom Duration: Since onset Severity: Current: Mild Pertinent Negative: Pt denies other symptoms Recent Healthcare: No recent doctor visit, No recent hospitalization Similar Sx Previous: No Past Medical History Patient History: Diabetes mellitus MOTHER FH: CAD (coronary artery disease) MOTHER FH: HTN (hypertension) MOTHER FHx: melanoma FATHER, Onset:60 years & older Past Medical History Notes: Patient is status post a normal stress echo 03/21/2014 Past Medical History Coronary artery disease status post stenting of LAD with a Xience drug-eluting stent 05/11/2012 Hypertension Hyperlipidemia Mild depression Treadmill stress test June 2014- Non-specific T-wave abnormalities Reports: Coronary artery disease, Diabetes mellitus, Hyperlipidemia, Hypertension Past Surgical History Torn meniscus 2006 Cardiac cath with stent placement LAD 05/11/2012 Reports: Appendectomy, Tonsillectomy Family History Grandfather - heart disease at age 60 Smoking History Current Every Day Smoker Social History Alcohol Use: Denies alcohol use Drug Use: Denies drug use Other Social History: 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 Physical Exam Initial Vital Signs Vital Signs (First) Date Time Temp Pulse Resp B/P Pulse Ox O2 Delivery O2 Flow Rate FiO2 04/08/16 23:36 36.2 61 153/89 100 Room Air 04/09/16 03:11 14 Initial VS: Reviewed Head / Eyes: Atraumatic, Normocephalic, PERRL ENT: Mucous membranes moist, Conjunctiva normal, No scleral icterus Neck: Supple, Non-tender, Full range of motion Extremities: Vascular intact, Neuro intact, No swelling, No tenderness Skin: Warm, Dry, No cyanosis Neurologic: Alert, Oriented, Nonfocal Psychiatric: Mood/affect normal, Behavior normal, Normal thought content General/Constitutional: Awake, Alert Respiratory / Chest: Breath sounds NL, Breath sounds = bilat, No respiratory distress, No rales, No rhonchi, No wheezing Cardiovascular: Heart rate NL, Regular rhythm, Heart sounds NL, Peripheral circulation NL Abdomen: No rebound, BS normoactive Tenderness/Guarding/Rebound: Positive: Tender RLQ... Back: Inspection NL, Non-tender, No CVA tenderness Interpretation & Diagnostics CT ABD PELVIS No CT evidence of acute intra-abdominal pathology. Radiologist: Nasim Montiel MD Lab Results Interpretation Result Diagram: 04/08/16 2355 04/08/16 2355 Test 04/08/16 23:55 04/09/16 01:03 White Blood Count 9.3th/mm3 (3.8-10.1) Red Blood Count 5.16mil/mm3 (4.40-5.80) Hemoglobin 15.9g/dL (13.8-17.2) Hematocrit 46.4% (41.0-50.0) Mean Corpuscular Volume 89.9fL (81-100) Mean Corpuscular Hemoglobin 30.8pg (27.0-35.0) Mean Corpuscular Hemoglobin Concent 34.3% (32.0-37.0) Red Cell Distribution Width 14.1% (12.3-15.4) Platelet Count 276bil/L (150-400) Neutrophils (%) (Auto) 56.3% (40-74) Lymphocytes (%) (Auto) 32.7% (14-46) Monocytes (%) (Auto) 5.9% (4-12) Eosinophils (%) (Auto) 3.7% (0-5) Basophils (%) (Auto) 0.9% (0-3) Sodium Level 140mEq/L (134-144) Potassium Level 4.5mEq/L (3.5-5.2) Chloride Level 100mEq/L (97-108) Carbon Dioxide Level 28mmol/L (18-29) Blood Urea Nitrogen 15mg/dL (6-24) Creatinine 0.84mg/dL (0.76-1.27) Estimat Glomerular Filtration Rate 102mL/min (>59) Glucose Level 110mg/dL (60-99) Calcium Level 9.3mg/dL (8.5-10.1) Magnesium Level 2.0mg/dL (1.6-2.6) Total Bilirubin 0.3mg/dL (0.0-1.2) Aspartate Amino Transf (AST/SGOT) 22U/L (0-50) Alanine Aminotransferase (ALT/SGPT) 27U/L (0-44) Alkaline Phosphatase 168U/L (25-150) Total Protein 7.5g/dL (6.4-8.4) Albumin 4.5g/dL (3.4-5.0) Lipase 27U/L (13-60) Hold Major Top Tube Received (Received) Hold Urine Received (Received) Re-Eval/Medical Decision Med Decision/Clinical Course CT and labs are all reassuring. Abdominal aortic aneurysm rupture, appendicitis, diverticulitis and acute surgical pathology ruled out. I ordered and recommended a throughout troponin. Mr. Gallardo declined this. He states that he has had chest pain before and he is not having any of the pain that prompted him to have the stress test in the upcoming cardiac catheterization. He would not like to stick around for troponin. He points to his lower abdomen just above the inguinal region as where the pain was. He had nothing whatsoever above the umbilicus. He is confident it is not his heart. The pain does seem to wax and wane so therefore he will be discharged home with a short course of Kinde for pain. Short course of Zofran for nausea. I recommended close outpatient follow-up. Addendum I spoke with his the next day. Tends at home doing well. No further pain. Time of Eval: 02:23 Re-Evaluation/Progress Note: Discussed lab and imaging results and plan for discharge, all questions addressed. Counseled Regarding: Diagnosis, Lab results, Need for follow-up, When/why to return to ED Discharge & Departure Primary Impression: Abdominal pain Abdominal location: right lower quadrant Qualified Code: R10.31 - Right lower quadrant pain Disposition: Home Vital Signs - All Vital Signs Date Time Temp Pulse Resp B/P Pulse Ox O2 Delivery O2 Flow Rate FiO2 04/09/16 03:11 36.8 88 14 128/68 97 Room Air 04/08/16 23:36 36.2 61 153/89 100 Room Air )( All Prior VS Reviewed: Yes Condition: Stable Patient Instructions: Acute Abdominal Pain (ED) Additional Instructions: Your lab and imaging studies were reassuring today, you do not have appendicitis. Follow up with your primary care provider for persistent symptoms Return to the emergency department if you develop any new or worsening symptoms. Take 1-2 Kinde every 6 hours as needed for pain. Take Zofran 1 every 8 hours as needed for nausea. Your laboratory work is reassuring. The cause of your pain is uncertain. Call your primary care physician tomorrow morning to set up a follow-up. Good luck with your cardiac catheterization. If you develop any chest symptoms whatsoever then come right back to the emergency department. Referrals: Rocio Villarreal MD (PCP) Scribe Attestation Portions of this note were transcribed by Yazmin Quinteros. I, Dr. Mosquera personally performed the history, physical exam and medical decision-making; I reviewed and confirmed the accuracy of the information in the transcribed note. Signed by: Yazmin Quinteros. 04/08/2016, 03:00. Benjamin Mosquera DO Apr 09, 2016 00:32 YAZMIN QUINTEROS Apr 09, 2016 00:40
[2016-04-09] MEDS ORDERED: 0.9% Sodium Chloride 1,000 ML IV ONE (00:45)
[2016-04-09] MEDS ORDERED: Ondansetron 2 mg/mL 2 mL Inj IVPUSH PRN (00:45)
[2016-04-09] MEDS ORDERED: Iohexol 300 mg/mL 30 mL Inj PO ONE (00:45)
[2016-04-09] MEDS ORDERED: HYDROmorphone 0.5 mg/0.5 mL iSecure Syringe IVPUSH PRN (00:45)
[2016-04-09] MEDS ORDERED: _HYDROcodone/APAP 5-325 mg Tablet PO PRN (02:35)
[2016-04-09] MEDS ORDERED: _Ondansetron ODT 4 mg Tablet PO PRN (02:35)
[2016-04-09 03:11] VITALS: BP 128/68; PULSE 88; RESP 14; O2SAT 97
[2016-04-09] MEDS ORDERED: Sodium Chloride LOK Flush 10 mL Syringe IVFLUSH SCH (08:30)
--- NOTE | 2016-04-09 10:41 | DRSVH ---
PROCEDURE: CT ABDOMEN AND PELVIS WITH CONTRAST ([id number]) INDICATIONS: RLQ pain TECHNIQUE: After the administration of oral and intravenous contrast, 5 mm thick sections acquired from the diap hragms to the symphysis. 5 mm thick coronal and sagittal reformats were performed. For radiation do se reduction, the following was used: automated exposure control, adjustment of mA and/or kV accordi ng to patient size. COMPARISON: [facility], CT, CT ABD PELVIS W CON, 11/15/2014, 21:32. FINDINGS: Image quality: Excellent. ABDOMEN: Lung bases: Lung bases are clear. Heart size is normal. Solid organs: Liver and spleen are normal in size and enhancement. Gallbladder is unremarkable. Bi liary system is non-dilated. Pancreas enhances normally. No adrenal nodules. Kidneys are normal in size and enhancement, without hydronephrosis. Peritoneum and bowel: Stomach, small bowel, and colon loops are normal in caliber and wall thickness . No free fluid or air. Nodes and vessels: No retroperitoneal or mesenteric adenopathy. Aorta and inferior vena cava are no rmal in caliber. Miscellaneous: No ventral hernias. PELVIS: Genitourinary: Bladder wall thickness is normal. Miscellaneous: No inguinal hernias or adenopathy. Bones: No suspicious bony lesions. No vertebral body compression fractures. IMPRESSION: 1. No visualized cause of acute abdominal or pelvic pain. Dictated by: Bonnie Sherwood M.D. on 04/09/2016 at 10:37 Approved by: Bonnie Sherwood M.D. on 04/09/2016 at 10:39
== END 2016-04-09 03:00 | disposition home or self-care (01) ==
LOC: SED 23:33
DX: R10.31 Right lower quadrant pain (principal); I11.9 Hypertensive heart disease without heart failure; E11.59 Type 2 diabetes mellitus with other circulatory complications; I25.10 Atherosclerotic heart disease of native coronary artery without angina pectoris; E78.5 Hyperlipidemia, unspecified; Z95.5 Presence of coronary angioplasty implant and graft; F17.200 Nicotine dependence, unspecified, uncomplicated; Z79.82 Long term (current) use of aspirin; Z88.0 Allergy status to penicillin; Z88.1 Allergy status to other antibiotic agents
CPT/HCPCS: 36415; 74177; 80053; 83690; 83735; 85025; 96361; 96374; 96375; 99285; J1170; J2405; J7030; Q9967

== ENCOUNTER 2016-08-19 16:40 | Emergency (ER) | payer OTHER ==
[~2016-08-19] VITALS: Ht 175.3 cm; Wt 61.4 kg
[2016-08-19 16:44] VITALS: BP 177/94; PULSE 82; RESP 16; O2SAT 97
--- NOTE | 2016-08-19 16:52 | ED.REPORT ---
HPI-General Illness Date of Service Aug 19, 2016 ED Provider: Amando Lucero MD Patient is a 50 year old male with a history of CAD s/p cardiac stent x2, hypertension, hyperlipidemia, and diabetes mellitus who presents to the ED complaining of SOB that began at 1630. Associated symptoms include diaphoresis, mild abdominal pain and lightheadedness. The patient also endorses dull pain with inspiration. He reports exacerbation of the pain with movement/twisting. He denies any similar previous symptoms perviously. Patient currently takes 1 baby Aspirin every day (taken today prior to arrival in ED) and Metoprol. He denies any cough, fever, chills, wheezing, nausea, vomiting, dull or substernal chest pain, new onset extremity swelling, or acid reflux symptoms. Patient denies any previous history of PE, recent surgeries, or recent flights. Nursing Notes Stated Complaint: PROBLEMS BREATHING Chief Complaint: Respiratory Complaints Nursing Notes Reviewed: Yes Allergies: Coded Allergies: Penicillins (Verified Allergy, Severe, Anaphylaxis, 05/12/15) azithromycin (Verified Allergy, Severe, Hives, 05/12/15) Scheduled Aspirin (Aspirin) 81 Mg Tablet 81 MG PO DAILY Atorvastatin (Lipitor) 40 Mg Tablet 40 MG PO HS Metoprolol Succinate ER (Metoprolol Succinate ER) 50 Mg Tab.er.24h 50 MG PO DAILY General Time Seen by MD: 16:50 Chief Complaint Other (SOB) Hx Obtained From: Patient Arrived By: Walk-in Sudden in Onset?: No Onset Occurred: 16 - 30 minutes ago (1630) Symptom Duration: Since onset Location: : Abdomen Quality: Dull, Painful Radiation: : Does not radiate Severity: Current: Mild Severity: Maximum: Mild Associated with: Reports: Abdominal pain, Diaphoresis, Difficulty breathing, Shortness of breath, Denies: Chest pain, Cough, Fever, Nausea, Vomiting Additional Notes: Lightheadedness Pertinent Negative: Pt denies other symptoms Recent Healthcare: No recent hospitalization, Recent doctor visit Past Medical History Patient History: Diabetes mellitus MOTHER FH: CAD (coronary artery disease) MOTHER FH: HTN (hypertension) MOTHER FHx: melanoma FATHER, Onset:60 years & older Past Medical History Notes: Patient is status post a normal stress echo 03/21/2014 Past Medical History Coronary artery disease status post stenting of LAD with a Xience drug-eluting stent 05/11/2012 Hypertension Hyperlipidemia Mild depression Treadmill stress test June 2014- Non-specific T-wave abnormalities Reports: Coronary artery disease, Diabetes mellitus, Hyperlipidemia, Hypertension Past Surgical History Torn meniscus 2006 Cardiac cath with stent placement LAD 05/11/201202/2016: 1. Left heart catheterization 2. Left reticular angiogram 3. Selective coronary angiogram 4. 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 Physical Exam Vital Signs Vital Signs Date Time Temp Pulse Resp B/P Pulse Ox O2 Delivery O2 Flow Rate FiO2 08/19/16 21:35 36.6 67 16 124/67 97 Room Air 08/19/16 20:24 67 16 124/67 97 Room Air 08/19/16 18:21 71 13 132/66 94 Room Air 08/19/16 16:55 74 18 150/82 94 Room Air 08/19/16 16:44 36.6 82 16 177/94 97 Room Air Initial VS: Reviewed Neck: Supple, Non-tender, Full range of motion Extremities: Vascular intact, Neuro intact, No swelling, No tenderness Skin: Warm, Dry, No cyanosis Neurologic: Alert, Oriented, Nonfocal Psychiatric: Mood/affect normal, Behavior normal, Normal thought content General/Constitutional: Awake, Alert, No acute distress, Well appearing, Well developed Head / Eyes: Atraumatic, Normocephalic, PERRL Respiratory / Chest: Atraumatic, Breath sounds NL, Breath sounds = bilat, No respiratory distress, No chest tenderness Cardiovascular: Heart rate NL, Regular rhythm, Heart sounds NL, No gallop, No murmurs, No rubs CARDIO: No calf swelling or tenderness Abdomen: Atraumatic, Soft, Non-tender, BS normoactive, No distention Interpretation & Diagnostics Lab Results Interpretation Result Diagram: 08/19/16 1705 08/19/16 1705 Test 08/19/16 17:05 08/19/16 18:52 08/19/16 19:50 White Blood Count 6.7th/mm3 (3.8-10.1) Red Blood Count 4.56mil/mm3 (4.40-5.80) Hemoglobin 14.2g/dL (13.8-17.2) Hematocrit 40.9% (41.0-50.0) Mean Corpuscular Volume 89.7fL (81-100) Mean Corpuscular Hemoglobin 31.1pg (27.0-35.0) Mean Corpuscular Hemoglobin Concent 34.7% (32.0-37.0) Red Cell Distribution Width 13.8% (12.3-15.4) Platelet Count 172bil/L (150-400) Neutrophils (%) (Auto) 53.8% (40-74) Lymphocytes (%) (Auto) 33.1% (14-46) Monocytes (%) (Auto) 7.8% (4-12) Eosinophils (%) (Auto) 4.3% (0-5) Basophils (%) (Auto) 0.7% (0-3) Sodium Level 138mEq/L (134-144) Potassium Level 3.5mEq/L (3.5-5.2) Chloride Level 103mEq/L (97-108) Carbon Dioxide Level 21mmol/L (18-29) Blood Urea Nitrogen 19mg/dL (6-24) Creatinine 0.69mg/dL (0.76-1.27) Estimat Glomerular Filtration Rate 127mL/min (>59) Glucose Level 160mg/dL (60-99) Calcium Level 9.3mg/dL (8.5-10.1) Total Bilirubin 0.2mg/dL (0.0-1.2) Aspartate Amino Transf (AST/SGOT) 21U/L (0-50) Alanine Aminotransferase (ALT/SGPT) 27U/L (0-44) Alkaline Phosphatase 204U/L (25-150) Pro-B-Type Natriuretic Peptide 43.60pg/mL (0-121) Total Protein 6.3g/dL (6.4-8.4) Albumin 3.9g/dL (3.4-5.0) Hold Major Top Tube Received (Received) Urine Color Yellow (YELLOW) Urine Appearance Clear (CLEAR,HAZY) Urine pH 6.0 (5.0-8.0) Urine Specific [place] 1.015 (1.003-1.035) Urine Protein Negativemg/dL (NEG,TRACE) Urine Glucose (UA) Negativemg/dL (NEGATIVE) Urine Ketones Negativemg/dL (NEGATIVE) Urine Occult Blood Negative (NEGATIVE) Urine Nitrite Negative (NEGATIVE) Urine Bilirubin Negative (NEGATIVE) Urine Urobilinogen Normalmg/dL (NORMAL) Urine Leukocyte Esterase Negative (NEGATIVE) Urine RBC 0-2/hpf (0-2) Urine WBC 0-5/hpf (0-5) Urine Epithelial Cells None/hpf (NONE-MOD) Urine Crystals None seen (NONE SEEN) Urine Bacteria None/hpf (NONE-FEW) Urine Hyaline Casts None/lpf (NONE) Urine Granular Casts None seen (NONE SEEN) Urine Waxy Casts None seen (NONE SEEN) Urine Red Blood Cell Casts None seen (NONE SEEN) Urine White Blood Cell Casts None seen (NONE SEEN) Urine Mucus None seen (None Seen) Urine Trichomonas None seen (NONE SEEN) Urine Yeast None (NONE SEEN) Urinalysis Comment None Urine Culture Reflexed Not indicated Troponin T < 0.010ug/L (0.0-0.011) ECG Interpretation ECG Interpretation: Sinus Rhythm Rate 61 Normal axis Normal intervals No ST changes No T wave abnormalities When compared to prior 02/15/16 - Interpreted by: ED physician X-Ray Chest Interpretation Chest Xray Interpretation: IMPRESSION: No acute disease Dictated by: Nguyễn Perez M.D. on 08/19/2016 at 17:35 Interpretation / Wet Read by: Interpret - Radiologist Re-Eval/Medical Decision Med Decision/Clinical Course Patient is a 50 year old male with a history of CAD s/p cardiac stent x2, hypertension, hyperlipidemia, and diabetes mellitus who presents to the ED complaining of SOB that began at 1630. Associated symptoms include diaphoresis, mild abdominal pain and lightheadedness. The patient also endorses dull pain with inspiration. He reports exacerbation of the pain with movement/twisting. He denies any similar previous symptoms perviously. Patient currently takes 1 baby Aspirin every day (taken today prior to arrival in ED) and Metoprol. He denies any cough, fever, chills, wheezing, nausea, vomiting, dull or substernal chest pain, new onset extremity swelling, or acid reflux symptoms. Patient denies any previous history of PE, recent surgeries, or recent flights. Here in the emergency department the patient is afebrile and hemodynamically stable. He is in no apparent distress. He reports that his symptoms have resolved upon arrival to the emergency room. Patient was placed on continuous cardiac monitoring and pulse oximetry. 324 mg of aspirin were administered. Laboratory studies notable as below: CBC unremarkable CMP unremarkable except glucose 360 mild elevated Alk phos troponin negative x2 UA unremarkable Chest X-ray IMPRESSION: No acute disease EKG Sinus Rhythm Rate 61 Normal axis Normal intervals No ST changes No T wave abnormalities When compared to prior 02/15/16 - no change Serial troponins remained negative. EKG demonstrated no acute ischemic changes. Patient reports that his symptoms are in no way similar to his previous episodes of cardiac chest pain. My suspicion for acute coronary syndrome is relatively low total my recommendation has been for admission for further stress testing and serial troponins. That being said, the patient refuses admission demonstrates decisional capacity. 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 I considered additional causes of the patient's chest pain including musculoskeletal etiologies but his pain is not clearly reproducible. Patient is relatively low risk for pulmonary embolism and he is without tachypnea, tachycardia or any ongoing shortness of breath. Examination of his lower extremities reveals no calf swelling or tenderness. After discussing the risks associated with radiation we opted not to received with d- dimer or CT angiography. Patient is advised to take aspirin daily and verbalizes that he will follow up closely with his primary care doctor. Prior to discharge follow-up and return precautions were reviewed in detail with the patient who verbalized understanding and agreement with the plan. The patient was discharged in stable condition. Time of Eval: 19:28 Patient Status: Condition improved Re-Evaluation/Progress Note: Patient is rechecked. He is informed of his results and diagnosis. All questions about the intended treatment plan are addressed. He understands and agrees with the plan. Counseled Regarding: Diagnosis, Lab results, Need for follow-up, When/why to return to ED Discharge & Departure Primary Impression: Shortness of breath Additional Impressions: Chest pain Chest pain type: unspecified Qualified Code: R07.9 - Chest pain, unspecified History of coronary artery disease History of heart artery stent Disposition: Home Discharge Condition All VS Reviewed: Yes Condition: Improved Patient Instructions: Shortness of Breath (ED) Additional Instructions: Thank you for seeking care at emergency room. Our primary goal today in the ED was to evaluate you for any life-threatening conditions. Your evaluation was reassuring. You should follow-up with your primary doctor in the next week for an outpatient stress test. You should return to the ED immediately if you develop any difficulty breathing , numbness.tingling/swelling in your extremities, fevers, vomiting, cough, shortness of breath, chest pain, lightheadedness, weakness or any other concerning signs or symptoms. Thank you for letting us partake in your care today. Referrals: Rocio Villarreal MD (PCP) Scribe Attestation Portions of this note were transcribed by Mallorie Meelndez. I, Dr. Lucero personally performed the history, physical exam and medical decision-making; I reviewed and confirmed the accuracy of the information in the transcribed note. Signed by: Malini Peraza, 08/19/16 1928. copies to: Rocio Villarreal MD, Beck O MD Aug 19, 2016 16:52 MALLORIE MELENDEZ Aug 19, 2016 17:00
[2016-08-19 16:55] VITALS: BP 150/82; PULSE 74; RESP 18; O2SAT 94
[2016-08-19 17:11] LABS: BASOPHILS % (AUTO) 0.7 % (0-3); EOSINOPHILS % (AUTO) 4.3 % (0-5); MONOCYTES % (AUTO) 7.8 % (4-12); Mean Corpuscular Hemoglobin 31.1 pg (27.0-35.0); Mean Corpuscular Volume 89.7 fL (81-100); NEUTROPHILS % (AUTO) 53.8 % (40-74); Platelet Count 172 bil/L (150-400)
--- NOTE | 2016-08-19 17:39 | DRSVH ---
PROCEDURE: X-RAY CHEST ONE VIEW, PORTABLE ([id number]) INDICATIONS: SOB TECHNIQUE: One view of the chest was acquired. COMPARISON: [facility], CR, XR CHEST 1VW (PORTABLE), 05/12/2015, 0:16. [facility], CR, XR CHEST 1VW (PORTABLE), 02/17/2016, 9:54. FINDINGS: Surgical changes and devices: None. Lungs and pleura: No pleural effusions or pneumothorax. Lungs are clear. Incidentally noted left ni pple shadow as before. Mediastinum: Mediastinal contours appear normal. Heart size is normal. Bones and chest wall: No suspicious bony lesions. Overlying soft tissues appear unremarkable. IMPRESSION: No acute disease Dictated by: Nguyễn Perez M.D. on 08/19/2016 at 17:35 Approved by: Nguyễn Perez M.D. on 08/19/2016 at 17:37
[2016-08-19 17:42] LABS: TROPONIN T < 0.010 ug/L (0.0-0.011)
[2016-08-19 18:21] VITALS: BP 132/66; PULSE 71; RESP 13; O2SAT 94
[2016-08-19 19:09] LABS: APPEARANCE,URINE CLEAR (CLEAR,HAZY); COLOR,URINE YELLOW (YELLOW); OCCULT BLOOD,URINE NEGATIVE (NEGATIVE); UROBILINOGEN,URINE NORMAL (NORMAL)
[2016-08-19 20:24] VITALS: BP 124/67; PULSE 67; RESP 16; O2SAT 97
[2016-08-19 21:35] VITALS: BP 124/67; PULSE 67; RESP 16; O2SAT 97
== END 2016-08-19 21:35 | disposition home or self-care (01) ==
LOC: SED 16:40
DX: R06.02 Shortness of breath (principal); R07.9 Chest pain, unspecified; I25.10 Atherosclerotic heart disease of native coronary artery without angina pectoris; I10 Essential (primary) hypertension; E11.9 Type 2 diabetes mellitus without complications; E78.5 Hyperlipidemia, unspecified; Z79.82 Long term (current) use of aspirin; Z88.0 Allergy status to penicillin; Z88.1 Allergy status to other antibiotic agents; F17.200 Nicotine dependence, unspecified, uncomplicated

== ENCOUNTER 2016-11-01 10:13 | Emergency (ER) | payer OTHER ==
[~2016-11-01] VITALS: Ht 175.3 cm; Wt 61.4 kg
[~2016-11-01 10:13] MED LIST changes: -METO-272 PO; +METO-369 PO
[2016-11-01 10:24] VITALS: BP 152/84; PULSE 71; RESP 20; O2SAT 99
[2016-11-01] MEDS ORDERED: PRAS10TA8 PO (10:29)
[2016-11-01] MEDS ORDERED: METO25TA6 PO (10:29)
--- NOTE | 2016-11-01 10:53 | ED.REPORT ---
HPI-Dyspnea / Wheezing Date of Service Nov 01, 2016 ED Provider: Lauri Ronquillo MD A 51 year old male with a history of smoking, hypertension, hyperlipidemia, diabetes, CAD, IA and cardiac stent presents to the ED complaining of a cough. The pt has been experiencing a productive cough with green phlegm for four days , in addition to chest congestion, sneeze, sore throat, rhinorrhea, headache and lack of energy. The pt denies nausea but has vomited when he "coughs too hard." He experiences chest pain when he coughs, but states that this pain is not similar to his previous IA. Nursing Notes Stated Complaint: COUGH,SNEEZING,CHEST CONGESTION,LOSS OF APPETITE Chief Complaint: FLU/Cold Symptoms Nursing Notes Reviewed: Yes Allergies: Coded Allergies: Penicillins (Verified Allergy, Severe, Anaphylaxis, 11/01/16) azithromycin (Verified Allergy, Severe, Hives, 11/01/16) Scheduled Aspirin (Aspirin) 81 Mg Tablet 81 MG PO DAILY Atorvastatin (Lipitor) 40 Mg Tablet 40 MG PO HS Metoprolol Tartrate (Metoprolol Tartrate) 25 Mg Tablet 25 MG PO BID Prasugrel HCl (Prasugrel HCl) 10 Mg Tablet 10 MG PO DAILY Scheduled PRN Fluticasone Propionate (Fluticasone Propionate Nasal) 16 Gm Steen.susp 1 SPRAY NS BID PRN PRN nasal congestion Promethazine DM Syrup (Promethazine DM Syrup) 118 Ml Syrup 5 ML PO HS PRN PRN For Cough General Time Seen by MD: 10:37 Chief Complaint Cough Hx Obtained From: Patient Arrived By: Walk-in Sudden in Onset?: No Onset Occurred: 4 days ago Symptom Duration: Since onset Recent Healthcare: Recent doctor visit Similar Sx Previous: No Past Medical History Patient History: Diabetes mellitus MOTHER FH: CAD (coronary artery disease) MOTHER FH: HTN (hypertension) MOTHER FHx: melanoma FATHER, Onset:60 years & older Past Medical History Notes: Patient is status post a normal stress echo 03/21/2014 Past Medical History Coronary artery disease status post stenting of LAD with a Xience drug-eluting stent 05/11/2012 Hypertension Hyperlipidemia IA Mild depression Treadmill stress test June 2014- Non-specific T-wave abnormalities Reports: Coronary artery disease, Diabetes mellitus, Hyperlipidemia, Hypertension Past Surgical History Torn meniscus 2006 Cardiac cath with stent placement LAD 05/11/201202/2016: 1. Left heart catheterization 2. Left reticular angiogram 3. Selective coronary angiogram 4. 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 GI: Reports: Vomiting (with coughing), Denies: Abdominal pain, Nausea Neurologic: Reports: Headache Physical Exam Initial Vital Signs Vital Signs (First) Date Time Temp Pulse Resp B/P Pulse Ox O2 Delivery O2 Flow Rate FiO2 11/01/16 10:24 36.6 71 20 152/84 99 Room Air Initial VS: Reviewed General/Constitutional: Awake, Alert Neck: Atraumatic, Supple, Full range of motion Respiratory / Chest: Atraumatic, Breath sounds NL, Breath sounds = bilat, No respiratory distress Cardiovascular: Heart rate NL, Regular rhythm, Heart sounds NL, No murmurs ENT: Atraumatic, Airway patent, Mucous membranes moist Abdomen: Atraumatic, Soft, Non-tender Back: Atraumatic, Full range of motion, No CVA tenderness Lower Extremity / Pelvis / MS: Atraumatic, Full range of motion Skin: Atraumatic, Color NL, No rash, Warm, Dry Neurologic: Oriented X3, Speech NL, No motor deficits, No sensory deficits Head / Eyes: Atraumatic, Normocephalic, PERRL, EOMI Upper Extremity / MS: Atraumatic, Full range of motion Psychiatric: Affect NL, Mood NL Interpretation & Diagnostics X-Ray Chest Interpretation Chest Xray Interpretation: IMPRESSION: No acute process. Dictated by: Yan White M.D. on 11/01/2016 at 10:55 Approved by: Yan White M.D. on 11/01/2016 at 10:56 Interpretation / Wet Read by: Interpret - Radiologist Re-Eval/Medical Decision Med Decision/Clinical Course 51-year-old male history of CAD with stents presenting with cough productive of green sputum 4 days and runny nose sore throat. Family with similar symptoms. Denies any chest pain. Vital signs stable. No risk factors for PE. PERC negative. His lungs are clear there is no evidence of COPD exacerbation and other than cough productive of green sputum though other viral symptoms make viral URI more likely. No indication for steroids at this time given his lungs are clear and no wheezing.. Likely viral URI. Discharged home with supportive care return precautions. Source of Hx: Old records Re-Evaluation/Progress : Time of Eval: 10:37 Patient Status: Condition improved Re-Evaluation/Progress Note: Pt informed of the diagnosis and plan for discharge during the initial interview. The pt understands and agrees with the plan. All questions are addressed at this time. Counseled Regarding: Diagnosis, Lab results, Need for follow-up, When/why to return to ED Discharge & Departure Impression: Primary Impression: Viral URI Disposition: Home Discharge Condition All VS Reviewed: Yes Condition: Stable Patient Instructions: Upper Respiratory Infection (ED) Additional Instructions: Thank you for entrusting us with your care. Your evaluation was reassuring with no evidence of pneumonia. Take Flonase as directed for congestion. Take Promethazine as prescribed. This is sedating so do not drive, drink alcohol or operate machinery while taking this medication. Call your primary care physician to arrange a follow up appointment in the next several days. Return to the emergency department if you develop any new or worsening symptoms including difficulty breathing, chest pain, fever or vomiting. Referrals: Rocio Villarreal MD (PCP) Scribe Attestation Portions of this note were transcribed by Og Morgan. I, Dr. Ronquillo personally performed the history, physical exam and medical decision-making; I reviewed and confirmed the accuracy of the information in the transcribed note. copies to: Rocio Villarreal MD, Ben M MD Nov 01, 2016 10:53 OG MORGAN Nov 01, 2016 11:16
--- NOTE | 2016-11-01 10:57 | DRSVH ---
PROCEDURE: X-RAY CHEST, TWO VIEWS ([id number]) INDICATIONS: cough, congestion TECHNIQUE: 2 views of the chest were acquired. COMPARISON: [facility], CR, XR CHEST 1VW (PORTABLE), 08/19/2016, 17:07. FINDINGS: Surgical changes and devices: None. Lungs and pleura: No pleural effusions or pneumothorax. Lungs are clear. Mediastinum: Mediastinal contours are normal. Heart size is normal. Bones and chest wall: No suspicious bony abnormalities. Soft tissues appear unremarkable. IMPRESSION: No acute process. Dictated by: Yan White M.D. on 11/01/2016 at 10:55 Approved by: Yan White M.D. on 11/01/2016 at 10:56
[2016-11-01] MEDS ORDERED: D-ME118S8 PO (11:14)
[2016-11-01] MEDS ORDERED: FLUT16SP NS (11:15)
[2016-11-01 11:33] VITALS: BP 138/84; PULSE 74; RESP 20; O2SAT 99
== END 2016-11-01 11:34 | disposition home or self-care (01) ==
LOC: SED 10:13
DX: J06.9 Acute upper respiratory infection, unspecified (principal); R11.10 Vomiting, unspecified; R07.9 Chest pain, unspecified; I11.9 Hypertensive heart disease without heart failure; E11.59 Type 2 diabetes mellitus with other circulatory complications; I25.10 Atherosclerotic heart disease of native coronary artery without angina pectoris; I25.2 Old myocardial infarction; E78.5 Hyperlipidemia, unspecified; F32.9 Major depressive disorder, single episode, unspecified; F17.200 Nicotine dependence, unspecified, uncomplicated; Z95.5 Presence of coronary angioplasty implant and graft; Z98.890 Other specified postprocedural states; Z90.89 Acquired absence of other organs; Z79.82 Long term (current) use of aspirin; Z88.0 Allergy status to penicillin; Z88.1 Allergy status to other antibiotic agents